=== PATIENT | male | born 1985 | race Hispanic/Latino ===

== ENCOUNTER 2018-02-23 07:15 | Inpatient (IN) | payer OTHER ==
[~2018-02-23] VITALS: Ht 177.8 cm; Wt 94.5 kg
[2018-02-23 08:07] LABS: BASOPHILS # (AUTO) 0.1 (0.0-0.1); BASOPHILS % 0.9 % (0.0-1.0); EOSINOPHILS # (AUTO) 0.1 (0.0-0.4); EOSINOPHILS % 1.1 % (0.0-6.0); HEMATOCRIT 29.4 % (38.2-49.6); HEMOGLOBIN 10.1 g/dL (14.0-18.0); MEAN CORPUSCULAR HEMOGLOBIN 29.9 pg (28-32); MEAN CORPUSCULAR HGB CONC 34.4 g/dL (31-35); MONOCYTES # (AUTO) 0.4 (0.2-0.8); MONOCYTES % 5.3 % (4.4-11.3); NEUTROPHILS # (AUTO) 5.1 (2.1-6.9); NEUTROPHILS % 76.5 % (38.7-80.0); PLATELET COUNT 288 x10e3/uL (140-360); RED BLOOD COUNT 3.38 x10e6/uL (4.3-5.7); RED CELL DISTRIBUTION WIDTH 12.8 % (11.7-14.4)
[2018-02-23] MEDS ORDERED: PANTOPRAZOLE 40 MG 10ML VIAL IV STA (08:23)
[2018-02-23 08:29] LABS: ALANINE AMINOTRANSFERASE 19 IU/L (0-55); ALBUMIN 3.7 g/dL (3.5-5.0); ALBUMIN/GLOBULIN RATIO 1.4 (0.8-2.0); ALKALINE PHOSPHATASE 47 IU/L (40-150); ANION GAP 9.9 mmol/L (8-16); BLOOD UREA NITROGEN 29 mg/dL (7-26); BUN/CREATININE RATIO 35 (6-25); CALCIUM 8.5 mg/dL (8.4-10.2); CARBON DIOXIDE 23 mmol/L (22-29); CHLORIDE 108 mmol/L (98-107); CREATINE KINASE 33 IU/L (30-200); CREATININE, SERUM 0.83 mg/dL (0.72-1.25); EST GLOMERULAR FILTRATION RATE > 60 ML/MIN (60-); GLUCOSE 124 mg/dL (74-118); POTASSIUM 3.9 mmol/L (3.5-5.1); SODIUM 137 mmol/L (136-145)
[2018-02-23] MEDS ORDERED: SODIUM CHLORIDE FLUSH 10 ML SYR INJ PRN (08:30)
[2018-02-23] MEDS ORDERED: PANTOPRAZOLE INJ 80 MG in SODIUM CHLORIDE 0.9% 100 ML IV SCH (08:30)
[2018-02-23] MEDS ORDERED: PANTOPRAZOLE INJ 40 MG in SODIUM CHLORIDE 0.9% 50ML 50 ML IV SCH (08:30)
[2018-02-23 08:40] LABS: INR 1.1; PROTHROMBIN TIME 13.4 seconds (11.9-14.5)
[2018-02-23 09:07] LABS: CHOL/HDL RATIO 3.4 (3.9-4.7)
[2018-02-23] MEDS: PANTOPRAZOL 40MG/SOD CHL 0.9% 50 ML IV SCH ×3 (09:15→21:14)
--- NOTE | 2018-02-23 09:23 | History and Physical ---
PRIMARY CARE PHYSICIAN: None CHIEF COMPLAINT: Passing out and black stool. HISTORY OF PRESENT ILLNESS: This is a 32-year-old man with a history of black stool 1 week ago, now developing black stool again yesterday described as tarry black stool with epigastric pain. The patient was having a shower. His was in the next door bathroom when the patient totally passed out. His came and got him. She said he was out for only a few seconds. The patient was brought to the hospital for further evaluation and management. He has not passed out in the past. Has not had a GI bleed in the past to his knowledge, but he has had this epigastric pain for the past 1-1/2 years, but has not sought any medical intervention. PAST MEDICAL HISTORY: None. PAST SURGICAL HISTORY: Appendectomy. ALLERGIES: PER ELECTRONIC MEDICAL RECORD. FAMILY HISTORY/SOCIAL HISTORY: Patient is . He has 5 children. Occasional alcohol. No cigarettes. 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 MEDICATIONS: Per electronic medical records. REVIEW OF SYSTEMS: Denies any dizziness or chest pain. Denies any fever, chills or sweats. Denies any nausea, vomiting, diarrhea, leg pain, back pain, headache. PHYSICAL EXAMINATION VITAL SIGNS: Reviewed. GENERAL: A tired-appearing man resting in bed. HEENT: Anicteric. Pupils respond to light. No oral lesions. CARDIOVASCULAR: Normal S1 and S2. LUNGS: Moderate breath sounds. ABDOMEN: Soft and nondistended. He has tenderness in the epigastrium. EXTREMITIES: No edema. SKIN: Dry. PSYCHIATRIC: Flat affect. NEUROLOGICAL: Alert and oriented times 3. Moves all extremities. LABS: Reviewed. MEDICATIONS: Reviewed. ASSESSMENT: This is a 32-year-old man with: 1. Syncope. 2. Melena. 3. Normocytic anemia which is mild to moderate. 4. Obesity. 5. Epigastric pain. PLAN 1. Will obtain orthostatic vitals. 2. Will obtain stool occult blood. 3. Will consult GI services. 4. Will consult physical therapy. 5. Obtain an anemia panel. 6. Will screen for diabetes and obtain a lipid panel. 7. Obtain a TSH. 8. Will use SCD for DVT prophylaxis. 9. Will use PPI. 10. Monitor closely. Job#: [id number] RI
[2018-02-23 09:28] LABS: FERRITIN 8.21 ng/mL (21.81-274.66); THYROID STIMULATING HORMONE 0.941 uIU/mL (0.350-4.940)
[2018-02-23 10:08] VITALS: BP 103/70
[2018-02-23 10:12] VITALS: BP 103/70
[2018-02-23 10:30] VITALS: BP 99/64
[2018-02-23 12:10] VITALS: BP 114/67
[2018-02-23] MEDS ORDERED: EPINEPHRINE HCL INJ 1 MG/ML AMP ONE (12:15)
[2018-02-23] MEDS ORDERED: MIDAZOLAM HCL 2 MG/2 ML VIAL ONE (14:39)
[2018-02-23] MEDS ORDERED: FENTANYL CITRATE/PF 100MCG/2 ML INJ ONE (14:39)
[2018-02-23 16:00] LABS: HEMATOCRIT 25.7 % (38.2-49.6)
[2018-02-23] MEDS: SUCRALFATE 1 GM TAB PO SCH ×2 (16:22→21:14)
[2018-02-23] MEDS ORDERED: PROPOFOL IV EMULSION 10 MG/ML 20 ML VIAL ONE (16:31)
[2018-02-23] MEDS ORDERED: LIDOCAINE HCL 2% LOCAL INJ 5 ML SDV VIAL INJ ONE (16:31)
[2018-02-23 17:07] VITALS: BP 109/56
--- NOTE | 2018-02-23 18:40 | Diagnostic Imaging Report ---
PROCEDURE:US ABDOMEN LIMITED COMPARISON:None. INDICATIONS:EPIGASTRIC PAIN, R/O CIRRHOSIS TECHNIQUE: Lu-scale and color Doppler transverse and longitudinal images of the right upper quadrant of the abdomen were obtained. FINDINGS: Limited exam secondary to overlying bowel gas. Liver: 14.5 cm in right mid-clavicular line. Slightly coarsened echogenicity. Smooth contour. No masses. Main portal vein: 0.9 cm, normal in diameter. Hepatopetal flow. Gallbladder: 0.4 cm, mildly thickened. No stones or sludge. Common Bile Duct: 0.3 cm, normal. Sonographic Beltre's sign: Negative Right kidney: 11.1 x 5.3 x 4.7 cm. Normal echogenicity. No solid masses or hydronephrosis. Pancreas: Limited evaluation secondary to overlying bowel gas. Inferior vena cava: Patent Aorta: Limited evaluation secondary to overlying bowel gas. Ascites: None in the right upper quadrant of the abdomen. CONCLUSION: Slightly coarsened liver echogenicity may reflect chronic hepatocellular disease or early cirrhosis. Mild nonspecific gallbladder wall thickening without sonographic evidence of acute cholecystitis. Dictated by: Parish Nj M.D. on 02/23/2018 at 18:45 Electronically approved by: Parish Nj M.D. on 02/23/2018 at 18:45
[2018-02-23 20:00] VITALS: BP 101/59
[2018-02-23] MEDS ORDERED: SODIUM CHLORIDE 0.9% 250ML 250 ML ONE (20:55)
[2018-02-24] VITALS (8 sets, daily range): BP systolic 100–114; BP diastolic 55–66
[2018-02-24] MEDS: PANTOPRAZOL 40MG/SOD CHL 0.9% 50 ML IV SCH ×4 (02:10→16:29)
[2018-02-24 04:56] LABS: BASOPHILS % 0.6 % (0.0-1.0); EOSINOPHILS # (AUTO) 0.1 (0.0-0.4); EOSINOPHILS % 2.1 % (0.0-6.0); HEMATOCRIT 24.5 % (38.2-49.6); HEMOGLOBIN 8.6 g/dL (14.0-18.0); LYMPHOCYTES # (AUTO) 1.4 (1.0-3.2); MEAN CORPUSCULAR HEMOGLOBIN 30.3 pg (28-32); MEAN CORPUSCULAR HGB CONC 35.1 g/dL (31-35); MEAN CORPUSCULAR VOLUME 86.3 fL (81-99); MONOCYTES # (AUTO) 0.4 (0.2-0.8); MONOCYTES % 5.9 % (4.4-11.3); NEUTROPHILS # (AUTO) 4.5 (2.1-6.9); NEUTROPHILS % 68.3 % (38.7-80.0); PLATELET COUNT 227 x10e3/uL (140-360); RED BLOOD COUNT 2.84 x10e6/uL (4.3-5.7); RED CELL DISTRIBUTION WIDTH 13.1 % (11.7-14.4)
[2018-02-24 05:09] LABS: ANION GAP 9.8 mmol/L (8-16); BLOOD UREA NITROGEN 18 mg/dL (7-26); BUN/CREATININE RATIO 23 (6-25); CALCIUM 8.2 mg/dL (8.4-10.2); CARBON DIOXIDE 23 mmol/L (22-29); CHLORIDE 106 mmol/L (98-107); EST GLOMERULAR FILTRATION RATE > 60 ML/MIN (60-); GLUCOSE 106 mg/dL (74-118); POTASSIUM 3.8 mmol/L (3.5-5.1); SODIUM 135 mmol/L (136-145)
[2018-02-24] MEDS: SUCRALFATE 1 GM TAB PO SCH ×4 (08:28→20:36)
[2018-02-24 12:12] LABS: HEMATOCRIT 25.1 % (38.2-49.6); HEMOGLOBIN 8.6 g/dL (14.0-18.0)
[2018-02-24 18:37] LABS: HEMATOCRIT 23.9 % (38.2-49.6); HEMOGLOBIN 8.2 g/dL (14.0-18.0)
[2018-02-25] MEDS: PANTOPRAZOL 40MG/SOD CHL 0.9% 50 ML IV SCH ×5 (02:20→20:56)
[2018-02-25 06:07] LABS: HEMATOCRIT 23.2 % (38.2-49.6)
[2018-02-25] MEDS: SUCRALFATE 1 GM TAB PO SCH ×4 (07:55→22:07)
[2018-02-25 08:05] VITALS: BP 107/52
[2018-02-25 08:24] VITALS: BP 107/52
--- NOTE | 2018-02-25 10:27 | Progress Note ---
DATE: February 24, 2018 TIME: 8:00 a.m. OVERNIGHT: Underwent EGD with findings of duodenal ulcer, hiatal hernia, duodenitis, gastritis, and Schatzki ring. REVIEW OF SYSTEMS: Denies any dizziness, chest pain. PHYSICAL EXAMINATION: VITAL SIGNS: Reviewed. GENERAL APPEARANCE: Tired-appearing man resting in bed. HEENT: Anicteric. CARDIOVASCULAR: Normal S1 and S2. LUNGS: Moderate breath sounds. ABDOMEN: Soft, nontender. EXTREMITIES: No edema. SKIN: Dry. PSYCHIATRIC: Normal affect. LABS: Reviewed. MEDICATIONS: Reviewed. ASSESSMENT: A 32-year-old man. 1. Syncope. 2. Melena. 3. Normocytic anemia. 4. Obesity. 5. Epigastric pain. 6. Iron deficiency anemia. 7. Duodenal ulcer. 8. Hiatal hernia. 9. Duodenitis. 10. Gastritis. 11. Schatzki ring. PLAN: 1. Continue PPI. 2. Continue bowel regimen. 3. Follow up hemoglobin count. 4. Continue sucralfate. 5. Follow up GI recommendations. 6. Discharge planning. Job#: [id number]
[2018-02-25 11:59] VITALS: BP 114/58
[2018-02-25 12:13] LABS: HEMATOCRIT 23.9 % (38.2-49.6); HEMOGLOBIN 8.1 g/dL (14.0-18.0)
--- NOTE | 2018-02-25 15:54 | Progress Note ---
DATE: February 25, 2018 TIME: 11:00 a.m. OVERNIGHT: No acute events. REVIEW OF SYSTEMS: Denies dizziness, shortness of breath, chest pain. No nausea, vomiting or diarrhea at this time. Intermittent tenderness to abdomen reported. PHYSICAL EXAMINATION VITAL SIGNS: T 97.9, pulse 66, respiratory rate 18, BP 114/58. SpO2 100% on RA. GENERAL APPEARANCE: Tired-appearing man resting quietly in bed. HEENT: Normocephalic, without sinus tenderness. CV: S1 and S2 auscultated without extra cardiac sounds appreciated. LUNGS/RESPIRATORY: Bilateral breath sounds are clear to auscultation in all herron at this time. ABDOMEN: Soft, nondistended, only slightly tender to deep palpation. EXTREMITIES: No edema. SKIN: Dry. PSYCHIATRIC: Normal affect. NEURO: Alert and oriented x3. LABS: H and H this a.m. 8.1 and 23.9. Prior values reviewed. MEDICATIONS 1. Carafate 1 gram a.c. and at bedtime. 2. Protonix drip IV. ASSESSMENT: This is a 32-year-old man with: 1. Syncope. 2. Melena. Stool collected, report pending. 3. Normocytic anemia. Continue to monitor. Stable. Continues on PPI. 4. Obesity. Outpatient calorie restriction counseling. 5. Epigastric pain, resolved. 6. Iron deficiency anemia. Continue PPI, Carafate and GI recommendations. 7. Duodenal ulcer. Continue GI rest and PPI. 8. Hiatal hernia. 9. Duodenitis, gastritis and Schatzki ring. Continue PPI and defer to GI. 10. Discharge planning. Pending PPI completion and GI clearance, anticipate discharge. DICTATED BY: Fernanda Jimenez NP Job#: [id number]
[2018-02-25 16:46] VITALS: BP 118/56
[2018-02-25 18:08] LABS: HEMATOCRIT 23.2 % (38.2-49.6); HEMOGLOBIN 8.2 g/dL (14.0-18.0)
[2018-02-25 19:58] VITALS: BP 113/60
[2018-02-25 20:05] VITALS: BP 113/60
[2018-02-26 00:29] VITALS: BP 122/58
[2018-02-26] MEDS: PANTOPRAZOL 40MG/SOD CHL 0.9% 50 ML IV SCH ×2 (02:08→08:06)
[2018-02-26 05:04] LABS: HEMATOCRIT 23.7 % (38.2-49.6)
[2018-02-26 06:00] VITALS: BP 117/56
[2018-02-26 08:13] VITALS: BP 101/52
[2018-02-26] MEDS: SUCRALFATE 1 GM TAB PO SCH (08:30)
[2018-02-26 08:45] VITALS: BP 128/58
[2018-02-26 11:43] LABS: HEMATOCRIT 23.9 % (38.2-49.6); HEMOGLOBIN 8.4 g/dL (14.0-18.0)
[2018-02-26] MEDS ORDERED: CARAFATE1 GM PO (12:02)
[2018-02-26] MEDS ORDERED: PROTONIX40 MG PO (12:02)
[2018-02-26 12:17] VITALS: BP 106/58
--- NOTE | 2018-02-26 21:31 | Discharge Summary ---
PRINCIPAL DIAGNOSES 1. Syncope. 2. Melena. 3. Normocytic anemia. 4. Obesity. 5. Epigastric pain. 6. Iron deficiency anemia. 7. Duodenal ulcer. 8. Hiatal hernia. 9. Duodenitis. 10. Gastritis. 11. Schatzki's ring. SECONDARY DIAGNOSIS: No prior medical history other than remote surgical ____ of appendectomy. CHIEF COMPLAINT: Passing out and black stool. HISTORY OF PRESENT ILLNESS: This 32-year-old man with a history of black stools x1 week began to develop black stool again, which he described as tarry with epigastric pain. The patient was having a shower that last he recalled. His was in the next door bathroom when the patient passed out. She heard this and came and got him. The syncopal episode was only for a few seconds per the spouse. The patient was brought to the hospital for further evaluation and management. He has no prior history of syncope or history of GI bleed. The patient did admit to epigastric pain for the past 1 to 1 1/2 years without seeking medical intervention. The patient was admitted for evaluation and treatment which included orthostatic vitals, obtaining stool occult blood. GI service consult, physical therapy, monitoring of TSH, screening for disease and lipids and physical therapy. The following day the patient, under the care of GI services, underwent EGD and colonoscopy at which time he was diagnosed with a duodenal ulcer, duodenitis, gastritis and a Schatzki's ring. Per GI recommendations, the patient was to continue on Protonix drip for 72 hours. The patient maintained stable hemoglobin and hematocrit while consuming Carafate ___ at bedtime with a Protonix drip. He had an uneventful hospital course. DISCHARGE MEDICATIONS: The patient was discharged with prescription for Protonix 40 mg suspension packet 1 per day and Carafate 1 gram tablet p.o. a.c. and nightly for 10 days. FOLLOWUP INSTRUCTIONS: The patient is instructed to follow up with gastroenterology, Dr. Aleena Alfaro, within one week and to follow up with internal medicine, Dr. Xavi Anthony, within 1-2 weeks. DISCHARGE DIET: Cardiac. He is to consume a soft diet as tolerated. CONDITION ON DISCHARGE: Stable and improved. DICTATED BY: Fernanda Jimenez NP XAVI ANTHONY MD Job#: [id number]
--- NOTE | 2018-02-27 10:02 | Progress Note ---
DATE: TIME: 1:17 p.m. OVERNIGHT: The patient had an EGD performed. REVIEW OF SYSTEMS: Denies any dizziness or chest pain. PHYSICAL EXAMINATION VITAL SIGNS: Reviewed. GENERAL: A tired-appearing man resting in bed. HEENT: Anicteric. CARDIOVASCULAR: Normal S1 and S2. LUNGS: Moderate breath sounds. ABDOMEN: Soft, nontender and nondistended. EXTREMITIES: No edema or calf tenderness. NEUROLOGICAL: Alert and oriented times 3. Moving all extremities. LABS: Reviewed. MEDICATIONS: Reviewed. ASSESSMENT: A 32-year-old man with: 1. Syncope. 2. Melena. 3. Normocytic anemia, mild to moderate. 4. Obesity. 5. Epigastric pain. 6. Iron deficiency anemia. 7. Duodenal ulcer. 8. Hiatal hernia. 9. Duodenitis. 10. Gastritis. 11. Schatzki ring. PLAN 1. Continue medication regimen. 2. Follow up GI recommendations. 3. Continue monitoring closely. 4. Couple of blackouts. 5. Continue GI treatment. 6. The patient remains on PPI and sucralfate. Job#: [id number]
== END 2018-02-26 13:39 | disposition home or self-care (01) | DRG 379 ==
LOC: ER 07:15 → ERHOLD 08:34 → IMCU 09:50 → OBSVTOIN 02-24 13:36 → MED/SURG 02-24 22:00
PROVIDERS: ADMIT Internal Medicine; ATTEND Internal Medicine
PROC: 0DB78ZX Excision of Stomach, Pylorus, Via Natural or Artificial Opening Endoscopic, Diagnostic (ICD-10-PCS; principal; 2018-02-24)
PROC: 3E0G8GC Introduction of Other Therapeutic Substance into Upper GI, Via Natural or Artificial Opening Endoscopic (ICD-10-PCS; 2018-02-24)
PROC: 0DJ08ZZ Inspection of Upper Intestinal Tract, Via Natural or Artificial Opening Endoscopic (ICD-10-PCS; 2018-02-24)
DX: K26.0 Acute duodenal ulcer with hemorrhage (principal); D50.0 Iron deficiency anemia secondary to blood loss (chronic); K44.9 Diaphragmatic hernia without obstruction or gangrene; K22.2 Esophageal obstruction; K29.70 Gastritis, unspecified, without bleeding
CPT/HCPCS: 36415; 43235; 43239; 76705; 80048; 80053; 80061; 82550; 82553; 82607; 82728; 83036; 83540; 84443; 84466; 84484; 85014; 85018; 85025; 85610; 85730; 88305; 88312; 93005; 96374; 99284; G0378; J0171; J2001; J2250; J7050

== ENCOUNTER 2020-01-01 18:49 | Inpatient (IN) | payer OTHER ==
[~2020-01-01] VITALS: Ht 177.8 cm; Wt 95.7 kg
[~2020-01-01 18:49] MED LIST: CARAFATE1 GM PO; PROTONIX40 MG PO
--- OUTSIDE RECORDS SUMMARY | 2020-01-01 18:51 | XMS REPORT | Continuity of Care Document ---
Author Author [facility] t Organization [facility] Address [address] [place] [address] Phone Unavailable Care Team Providers Care Information Engineer Name Role Phone NO, PCP PCP Unavailable XAVI ANTHONY Attphys Unavailable XAVI ANTHONY Admphys Unavailable Payers Payer Name Policy Type Policy Number Effective Date Expiration Date Barbara recinos Miscellaneous Ppo [id number] 2017 00:00:00 [facility] Problems Condition Name Condition Details Condition Category Status Onset Date Resolution Date Last Treatment Date Treating Clinician Comments Source Gastrointestinal hemorrhage GI (gastrointestinal bleed) Problem Active [facility] Allergies, Adverse Reactions, Alerts This patient has no known allergies or adverse reactions. Medications Ordered Medication Name Filled Medication Name Start Date Stop Da te Current Medication? Ordering Clinician Indication Dosage Frequency Signature (SIG) Comments Components Source Pantoprazole Sodium (Protonix) 40 Mg Suspdr.pkt Pantop razole Sodium (Protonix) 40 Mg Suspdr.pkt 2018-02-26 00:00:00 2018-03-08 00:00:00 No Fernanda stubbs Primary Care Sales Representative 40 Daily [facility] Sucralfate (Carafate) 1 Gm Tablet Sucralfate (Carafate) 1 Gm Tablet 2018-02-26 00:00:00 2018-03-08 00:00:00 No Fernanda Jimenez Primary Care Sales Representative 1 Before Meals And At Bedtime [facility] Procedures Procedure Date / Time Performed Performing Clinician Soursintia e EGD with biopsy 2018-02-23 00:00:00 FUAD ANGELA [facility] EGD (esophagogastroduodenoscopy) 2018-02-23 00:00:00 FUAD ANGELA [facility] US abdomen limited 2018-02-23 00:00:00 SOPHIA DIAL PA-C, [facility] I [facility] Encounters Start Date/Time End Date/Time [facility] ID Source 2018-02-24 13:36:00 2018-02-26 13:39:00 Discharged Inpatient 1 XAVI ANTHONY [facility] [id number] [facility] Results Test Description Test Time Test Comments Results Result Comments Source Hemoglobin 2018-02-26 11:45:00 Test Item Hemoglobin (test code = 11716-6) 8.4 14.0-18.0 L [facility]villeHematocrit2018-08-06 11:45:00* Test Item Value Reference Range Interpretation Comments Hematocrit (test code = 4544-3) 23.9 38.2-49.6 L [facility] Templeodium Cynus4997-97-03 05:09:00* Test Item Value Reference Range Interpretation Comments Sodium Level (test code = 2951-2) 135 136-145 L [facility]villePotassium Svvib7131-22-09 05:09:00* Test Item Value Reference Range Interpretation Comments Potassium Level (test code = 2823-3) 3.8 3.5-5.1 [facility]villeChloride Ujctn7533-79-04 05:09:00* Test Item Value Reference Range Interpretation Comments Chloride Level (test code = 2075-0) 106 98-107 [facility] GreenvilleCarbon Dioxide Ufgdp4110-70-61 05:09:00* Test Item Value Reference Range Interpretation Comments Carbon Dioxide Level (test code = 2028-9) 23 22-29 [facility] GreenvilleAnion Eqz8209-47-70 05:09:00* Test Item Value Reference Range Interpretation Comments Anion Gap (test code = 73097-1) 9.8 8-16 [facility] GreenvilleBlood Urea Ketenizg6652-11-15 05:09:00* Test Item Value Reference Range Interpretation Comments Blood Urea Nitrogen (test code = 3094-0) 18 7-26 [facility] GreenvilleCreatinine2018-08-04 05:09:00* Test Item Value Reference Range Interpretation Comments Creatinine (test code = 2160-0) 0.80 0.72-1.25 [facility]villeBUN/Creatinine Orbuc4814-37-58 05:09:00* Test Item Value Reference Range Interpretation Comments BUN/Creatinine Ratio (test code = 3097-3) 23 6-25 [facility] GreenvilleEstimat Glomerular Filtration Rate 2018-02-24 05:09:00* Test Item Value Reference Range Interpretation Comments Estimat Glomerular Filtration Rate (test code = 21669-9) 60- >60 Ranges were taken from the National Kidney Disease Education Program and the Critical access hospital Kidney Foundation literature.Reference ranges:60 or greater: Nithfo57-90 ( for 3 consecutive months): Chronic kidney disease 15 or less: Kidney failureHunt Regional Medical Center at GreenvilleGlucose Qyhtg3973-89-06 05:09:00* Test Item Value Reference Range Interpretation Comments Glucose Level (test code = ERR9794) 106 74-118 [facility] GreenvilleCalcium Drlby1386-68-68 05:09:00* Test Item Value Reference Range Interpretation Comments Calcium Level (test code = 98765-2) 8.2 8.4-10.2 L [facility] GreenvilleActivated Partial Thromboplast Time 2018-02-24 05:06:00* Test Item Value Reference Range Interpretation Comments Activated Partial Thromboplast Time (test code = 71335-7) 26.7 23.8-35.5 [facility] GreenvilleWhite Blood Qnoxx5118-22-33 05:01:00* Test Item Value Reference Range Interpretation Comments White Blood Count (test code = 6690-2) 6.56 4.8-10.8 [facility] GreenvilleRed Blood Dythe1372-04-30 05:01:00* Test Item Value Reference Range Interpretation Comments Red Blood Count (test code = 789-8) 2.84 4.3-5.7 L [facility] GreenvilleMean Corpuscular Fndkuw9099-34-07 05:01:00* Test Item Value Reference Range Interpretation Comments Mean Corpuscular Volume (test code = 787-2) 86.3 81-99 [facility] GreenvilleMean Corpuscular Oqhpjoelpn7888-87-74 05:01:00* Test Item Value Reference Range Interpretation Comments Mean Corpuscular Hemoglobin (test code = 785-6) 30.3 28-32 [facility] GreenvilleMean Corpuscular Hemoglobin Concent 2018-02-24 05:01:00* Test Item Value Reference Range Interpretation Comments Mean Corpuscular Hemoglobin Concent (test code = 786-4) 35.1 31-35 H [facility] GreenvilleRed Cell Distribution Qqtif5383-29-55 05:01:00* Test Item Value Reference Range Interpretation Comments Red Cell Distribution Width (test code = 08083-2) 13.1 11.7 -14.4 [facility] GreenvillePlatelet Eapjz4691-74-45 05:01:00* Test Item Value Reference Range Interpretation Comments Platelet Count (test code = 777-3) 227 140-360 [facility] GreenvilleNeutrophils (%) (Auto)2018-02-24 05:01:00 * Test Item Value Reference Range Interpretation Comments Neutrophils (%) (Auto) (test code = 03787-1) 68.3 38.7-80.0 [facility] GreenvilleLymphocytes (%) (Auto)2018-02-24 05:01:00 * Test Item Value Reference Range Interpretation Comments Lymphocytes (%) (Auto) (test code = 736-9) 22.0 18.0-39.1 [facility]villeMonocytes (%) (Auto)2018-02-24 05:01:00* Test Item Value Reference Range Interpretation Comments Monocytes (%) (Auto) (test code = 5905-5) 5.9 4.4-11.3 [facility]villeEosinophils (%) (Auto)2018-02-24 05:01:00 * Test Item Value Reference Range Interpretation Comments Eosinophils (%) (Auto) (test code = 713-8) 2.1 0.0-6.0 [facility]villeBasophils (%) (Auto)2018-02-24 05:01:00* Test Item Value Reference Range Interpretation Comments Basophils (%) (Auto) (test code = 706-2) 0.6 0.0-1.0 [facility] GreenvilleIM GRANULOCYTES %2018-02-24 05:01:00* Test Item Value Reference Range Interpretation Comments IM GRANULOCYTES % (test code = IM GRANULOCYTES %) 1.1 0.0- 1.0 H [facility]villeNeutrophils # (Auto)2018-02-24 05:01:00* Test Item Value Reference Range Interpretation Comments Neutrophils # (Auto) (test code = 751-8) 4.5 2.1-6.9 [facility] GreenvilleLymphocytes # (Auto)2018-02-24 05:01:00* Test Item Value Reference Range Interpretation Comments Lymphocytes # (Auto) (test code = 68774-3) 1.4 1.0-3.2 [facility]villeMonocytes # (Auto)2018-02-24 05:01:00* Test Item Value Reference Range Interpretation Comments Monocytes # (Auto) (test code = 742-7) 0.4 0.2-0.8 [facility]villeEosinophils # (Auto)2018-02-24 05:01:00* Test Item Value Reference Range Interpretation Comments Eosinophils # (Auto) (test code = 711-2) 0.1 0.0-0.4 [facility]villeBasophils # (Auto)2018-02-24 05:01:00* Test Item Value Reference Range Interpretation Comments Basophils # (Auto) (test code = 704-7) 0.0 0.0-0.1 [facility] GreenvilleAbsolute Immature Granulocyte (auto 2018-02-24 05:01:00* Test Item Value Reference Range Interpretation Comments Absolute Immature Granulocyte (auto (nellie t code = Absolute Immature Granulocyte (auto) 0.07 0-0.1 [facility] GreenvilleUS ABDOMEN XYHJYTM1650-41-58 18:45:00 [place] [address] Patient Name: AN FRANK MR #: [id number] : 1985 Age/Sex: 32/M Req #: [id number] Adm Physicia n: XAVI ANTHONY MD Ordered by: SOPHIA DIAL PA-C Report #: [id number] L ocation: [facility] Room/Bed: [place] [address] Procedure: US/US ABDOMEN LIMITED Exam Date: 02/23/18 Exam Ti me: 1453 REPORT STATUS: Signed PROCEDURE: US ABDOMEN LIMITED COMPAR MYRIAM: None. INDICATIONS: EPIGASTRIC PAIN, R/O CIRRHOSIS TECHNIQUE: Lu- scale and color Doppler transverse and longitudinal images of the right upper quadrant of the abdomen were obtained. FINDINGS: Limited exam second bright to overlying bowel gas. Liver: 14.5 cm in right mid-clavicular line. S lightly coarsened echogenicity. Smooth contour. No masses. Main portal vein : 0.9 cm, normal in diameter. Hepatopetal flow. Gallbladder: 0.4 cm, mild ly thickened. No stones or sludge. Common Bile Duct: 0.3 cm, normal. Sono graphic Beltre's sign: Negative Right kidney: 11.1 x 5.3 x 4.7 cm. Normal echogenicity. No solid masses or hydronephrosis. Pancreas: Limited cassie luation secondary to overlying bowel gas. Inferior vena cava: Patent Ao rta: Limited evaluation secondary to overlying bowel gas. Ascites: None in th e right upper quadrant of the abdomen. CONCLUSION: Slightly coarsened liver echogenicity may reflect chronic hepatocellular disease or early cirrh osis. Mild nonspecific gallbladder wall thickening without sonographic evidence of acute cholecystitis. Dictated by: Parish Solano M.D. o n 02/23/2018 at 18:45 Electronically approved by: Parish Solano M.D. on 02/23/2018 at 18:45 Dictated By: PARISH SOLANO MD Electronical ly Signed By: PARISH SOLANO MD on 02/23/181844 Transcribed By: APPLE on 1844 COPY TO: SOPHIA DIAL PA-C Vitamin B12 Level 2018-02-23 10:00:00* Test Item Value Reference Range Interpretation Comments Vitamin B12 Level (test code = 66294-8) 361 213-816 [facility] GreenvilleFerritin2018-08-03 09:29:00* Test Item Value Reference Range Interpretation Comments Ferritin (test code = 2276-4) 8.21 21.81-274.66 L [facility] GreenvilleThyroid Stimulating Hormone (TSH) 2018-02-23 09:29:00* Test Item Value Reference Range Interpretation Comments Thyroid Stimulating Hormone (TSH) (test code = 13827-6) 0.941 0.350-4.940 [facility] GreenvilleIron Ipunw0071-69-10 09:07:00* Test Item Value Reference Range Interpretation Comments Iron Level (test code = 2498-4) 28 65-175 L [facility] GreenvilleTotal Iron Binding Mgjtnokb3423-86-41 09:07:00* Test Item Value Reference Range Interpretation Comments Total Iron Binding Capacity (test code = 2500-7) 441 261-4 78 [facility] GreenvillePercent Iron Nvwaknxykw5623-88-07 09:07:00* Test Item Value Reference Range Interpretation Comments Percent Iron Saturation (test code = 2502-3) 6 15-50 L [facility] GreenvilleTransferrin2018-08-03 09:07:00* Test Item Value Reference Range Interpretation Comments Transferrin (test code = 3034-6) 315 174-364 [facility] GreenvilleTriglycerides Awupe7148-30-76 09:07:00* Test Item Value Reference Range Interpretation Comments Triglycerides Level (test code = 2571-8) 83 0-149 [facility] GreenvilleCholesterol Eldpa1722-27-86 09:07:00* Test Item Value Reference Range Interpretation Comments Cholesterol Level (test code = 2093-3) 99 0-199 Less than 200 mg/dL Low Vauv570 - 239 mg/dL Borderline Yuot441 m g/dl and greater High Risk [facility] GreenvilleLDL Gzqatdxykcg0261-76-35 09:07:00* Test Item Value Reference Range Interpretation Comments LDL Cholesterol (test code = 2089-1) 53 60-130 L [facility] GreenvilleHDL Qxjluudldln4395-88-85 09:07:00* Test Item Value Reference Range Interpretation Comments HDL Cholesterol (test code = 2085-9) 29 40-60 L [facility] GreenvilleCholesterol/HDL Fjahw2614-39-84 09:07:00 * Test Item Value Reference Range Interpretation Comments Cholesterol/HDL Ratio (test code = 9830-1) 3.4 3.9-4.7 L [facility] GreenvilleHemoglobin A1c Vhzkxnl5405-37-56 09:06:00 * Test Item Value Reference Range Interpretation Comments Hemoglobin A1c Percent (test code = Hemoglobin A1c Percent) 4.9 4.0-7.0 [facility] GreenvilleProthrombin Tqqp7667-57-76 08:41:00* Test Item Value Reference Range Interpretation Comments Prothrombin Time (test code = 5902-2) 13.4 11.9-14.5 [facility] GreenvilleProthromb Time International Ratio 2018-02-23 08:41:00* Test Item Value Reference Range Interpretation Comments Prothromb Time International Ratio (test code = 6301-6) 1.10 Oral Anticoagulant Therapy INR Values:1. Low Intensity Therapy 1.5 - 2.02 . Moderate Intensity Therapy 2.0 - 3.03. High Intensity Therapy(1) 2.5 - 3. 54. High Intensity Therapy(2) 3.0 - 4.05. Panic Value INR > 5.0 [facility] GreenvilleCreatine Kinase DH4732-58-68 08:37:00* Test Item Value Reference Range Interpretation Comments Creatine Kinase MB (test code = 41497-8) 0.40 0-5.0 [facility] GreenvilleTroponin P8373-73-28 08:37:00* Test Item Value Reference Range Interpretation Comments Troponin I (test code = WNY7703) 0.017 0-0.300 [facility] GreenvilleTotal Pcbzidxmu4849-44-92 08:29:00* Test Item Value Reference Range Interpretation Comments Total Bilirubin (test code = 1975-2) 0.4 0.2-1.2 [facility] GreenvilleAspartate Amino Transf (AST/SGOT) 2018-02-23 08:29:00* Test Item Value Reference Range Interpretation Comments Aspartate Amino Transf (AST/SGOT) (test code = Aspartate Amino Transf (AST/SGOT)) 14 5-34 [facility] GreenvilleAlanine Aminotransferase (ALT/SGPT) 2018-02-23 08:29:00* Test Item Value Reference Range Interpretation Comments Alanine Aminotransferase (ALT/SGPT) (test code = 1742-6) 19 0-55 [facility] GreenvilleTotal Lnptdhk1131-87-20 08:29:00* Test Item Value Reference Range Interpretation Comments Total Protein (test code = 2885-2) 6.3 6.5-8.1 L [facility] GreenvilleAlbumin2018-08-03 08:29:00* Test Item Value Reference Range Interpretation Comments Albumin (test code = 1751-7) 3.7 3.5-5.0 [facility] GreenvilleGlobulin2018-08-03 08:29:00* Test Item Value Reference Range Interpretation Comments Globulin (test code = 40569-9) 2.6 2.3-3.5 [facility] GreenvilleAlbumin/Globulin Vozzq4191-08-62 08:29:00 * Test Item Value Reference Range Interpretation Comments Albumin/Globulin Ratio (test code = 1759-0) 1.4 0.8-2.0 [facility] GreenvilleAlkaline Dxkbvreqpjr6569-88-39 08:29:00* Test Item Value Reference Range Interpretation Comments Alkaline Phosphatase (test code = 6768-6) 47 40-150 [facility] GreenvilleCreatine Dgsifn4614-18-36 08:29:00* Test Item Value Reference Range Interpretation Comments Creatine Kinase (test code = 2157-6) 33 30-200 [facility]
[2020-01-01] MEDS ORDERED: PIPER-TAZ 3.375 GM 50 ML IV STA (19:03)
[2020-01-01] MEDS ORDERED: ACETAMINOPHEN 325 MG TAB PO ONE (19:15)
--- NOTE | 2020-01-01 19:20 | Emergency Department Note ---
History of Present Illnes History of Present Illness Chief Complaint: COVID PUI History of Present Illness This is a 34 year old male presents to the ED for 7 days of cough and dyspnea. Known exposure to COVID-19. Historian: Patient Video Production Assistant Required: No Onset (how long ago): day(s) (7) Radiation: Reports non-radiation Severity: moderate Duration (how long): day(s) (7) Timing of current episode: constant Progression: worsening Context: Reports recent illness Relieving factors: none Exacerbating factors: none Associated symptoms: Reports fever/chills, Reports shortness of breath Treatments prior to arrival: none Past Medical/Family History Physician Review I have reviewed the patient's past medical and family history. Any updates have been documented here. Past Medical History Recent Fever: Yes Clinical Suspicion of Infectio: Yes New/Unexplained Change in Ment: No Past Medical History: None Past Surgical History: None Social History Smoking Cessation: Never Smoker Alcohol Use: Occasional Any Illegal Drug Use: No Other Last Tetanus: unk Review of Systems Review of Systems Constitutional: Reports fever EENTM: Reports no symptoms Cardiovascular: Reports no symptoms Respiratory: Reports cough Gastrointestinal: Reports no symptoms Genitourinary: Reports no symptoms Musculoskeletal: Reports no symptoms Integumentary: Reports no symptoms Neurological: Reports no symptoms Psychological: Reports no symptoms Endocrine: Reports no symptoms Hematological/Lymphatic: Reports no symptoms Review of other systems All other systems reviewed and negative. Physical Exam Related Data Allergies: Coded Allergies: No Known Allergies (Unverified , 02/23/18) Triage Vital Signs Vital Signs Date Time Temp Pulse Resp B/P (MAP) Pulse Ox O2 Delivery O2 Flow Rate FiO2 01/01/20 18:55 102.5 92 33 133/84 100 Vital signs reviewed: Yes Physical Exam CONSTITUTIONAL Constitutional: Reports well-developed, Reports well-nourished, Reports ill appearing HENT HENT: Reports normocephalic, Reports atraumatic, Reports oropharynx clear/nga st, Reports nose normal HENT L/R: Reports left ext ear normal, Reports right ext ear normal EYES Eyes: Reports PERRL, Reports conjunctivae normal NECK Neck: Reports ROM normal PULMONARY Pulmonary: Reports breath sounds normal, Reports other (tachypneic, decreased BS) CARDIOVASCULAR Cardiovascular: Reports heart sounds normal, Reports tachycardia GASTROINTESTINAL Abdominal: Reports soft, Reports nontender, Reports bowel sounds normal GENITOURINARY Genitourinary: Reports exam deferred SKIN Skin: Reports warm, Reports dry MUSCULOSKELETAL Musculoskeletal: Reports ROM normal NEUROLOGICAL Neurological: Reports alert, Reports oriented x 3, Reports no gross motor or sensory deficits PSYCHOLOGICAL Psychological: Reports mood/affect normal, Reports judgement normal Results Laboratory Lab results reviewed: Yes Laboratory comments Lactic acid 2.7 UA : mod bacteria Imaging Imaging results reviewed: Yes Impressions [place] [address] Patient Name: AN FRANK MR #: [id number] : 1985 Age/Sex: 34/M Req #: [id number] Adm Physician: Ordered by: ROQUE WALSH DO Report #: [id number] Location: ER Room/Bed: Procedure: [id number] DX/CHEST SINGLE (PORTABLE) Exam Date: 01/01/20 Exam Time: 1929 REPORT STATUS: Signed EXAM: CHEST SINGLE (PORTABLE) DATE: 01/01/2020 7:37 PM INDICATION: Shortness of breath, cough ^Y ^ERMD ORDER ^[id number] ^1929 ^Y COMPARISON: None FINDINGS: Lines and tubes: None The cardiac silhouette is normal allowing for portable technique and very low lung volumes. There is patchy airspace opacity at both lung bases. No pleural effusion or pneumothorax. Upper abdomen unremarkable. No acute bony abnormality. IMPRESSION: There are patchy airspace opacities at the lung bases. While this may reflect atelectasis accentuated by low lung volumes, this may represent multifocal pneumonia in the proper clinical setting. Signed by: Dr. Bryan Spaulding M.D. on 01/01/2020 8:13 PM Dictated By: BRYAN SPAULDING MD 12 Transcribed By: MARA on 01/01/202012 COPY TO: ROQUE WALSH DO~ Procedures 12 Lead ECG Interpretation ECG Interpretation : ECG: ECG 1 Video Production Assistant: Interpreted by ED physician Date: Jan 01, 2020 Time: 19:23 Prior ECG tracings: reviewed Rhythm: sinus tachycardia Rate: tachycardia BPM: 105 QRS axis: normal ST segments normal: Yes T waves normal: Yes Clinical Impression: non-specific ECG Critical Care Time Total Critical Care Time (min): 34 Critcal care necessary due to: sepsis Assessment & Plan Medical Decision Making MDM Patient presented during the COVID-19 virus pandemic and has a clinical picture consistent with a COVID-19 source for sepsis. Thus, patient was treated for suspected viral sepsis rather than bacterial sepsis. Given the potential for ARDS and present suggestions of early data from COVID treatment in other areas, fluids were given sparingly and the SEP-1 guidelines were deviated from. For consideration of other sources, blood and urine cultures, lactic acid and antibiotics were ordered. Will continue to monitor blood pressure and adjust fluid resuscitation accordingly. Patient with positive COVID-19 from outside testing center. Increasingly dys pneic. Lactic aid elevated. Plan to admit to the COVID-19 unit of the hospital. Assessment & Plan Final Impression: (1) COVID-19 (2) Sepsis Depart Disposition: ADMITTED Last Vital Signs Date Time Temp Pulse Resp B/P (MAP) Pulse Ox O2 Delivery O2 Flow Rate FiO2 01/01/20 18:55 102.5 92 33 133/84 100 Home Meds Discontinued Scripts Pantoprazole Sodium (PROTONIX) 40 Mg Suspdr.pkt, 40 MG PO DAILY for 10 Days, #10 PACKET Prov:[facility] TUTOR 02/26/18 Sucralfate (CARAFATE) 1 Gm Tablet, 1 GM PO ACHS for 10 Days, #40 Prov:[facility] T[facility] 02/26/18 Medications in the ED Piperacillin Sod/ Tazobactam Sod 50 ml @ 50 mls/hr ONCE STAT IV ; Start 01/01/20 at 19:03; Stop 01/01/20 at 20:02 Acetaminophen 650 mg ONCE ONCE PO ; Start 01/01/20 at 19:15; Stop 01/01/20 at 19:16; Status DC ROQUE WALSH DO Jan 01, 2020 19:20
[2020-01-01 19:32] LABS: BASOPHILS % 0.2 % (0.0-1.0); EOSINOPHILS % 0.1 % (0.0-6.0); HEMATOCRIT 50.2 % (38.2-49.6); HEMOGLOBIN 17.3 g/dL (14.0-18.0); LYMPHOCYTES # (AUTO) 0.7 (1.0-3.2); LYMPHOCYTES % 7.6 % (18.0-39.1); MEAN CORPUSCULAR HEMOGLOBIN 29.2 pg (28-32); MEAN CORPUSCULAR HGB CONC 34.5 g/dL (31-35); MEAN CORPUSCULAR VOLUME 84.8 fL (81-99); MONOCYTES # (AUTO) 0.6 (0.2-0.8); MONOCYTES % 5.8 % (4.4-11.3); NEUTROPHILS # (AUTO) 8.2 (2.1-6.9); NEUTROPHILS % 85.8 % (38.7-80.0); PLATELET COUNT 254 x10e3/uL (140-360); RED BLOOD COUNT 5.92 x10e6/uL (4.3-5.7); RED CELL DISTRIBUTION WIDTH 11.9 % (11.7-14.4)
[2020-01-01] MEDS ORDERED: SODIUM CHLORIDE 0.9% 1000ML 1,000 ML IV STA (19:42)
--- NOTE | 2020-01-01 19:42 | NUR ---
ER MD AND PRIMARY RN NOTIFIED AND AWARE OF CRITIAL LAB VALUE, LACTIC ACID 2.7.
[2020-01-01 19:44] LABS: ALANINE AMINOTRANSFERASE 26 IU/L (0-55); ALBUMIN 3.8 g/dL (3.5-5.0); ALBUMIN/GLOBULIN RATIO 0.9 (0.8-2.0); ALKALINE PHOSPHATASE 62 IU/L (40-150); ANION GAP 16.9 mmol/L (8-16); BLOOD UREA NITROGEN 14 mg/dL (7-26); BUN/CREATININE RATIO 13 (6-25); CALCIUM 9.2 mg/dL (8.4-10.2); CARBON DIOXIDE 23 mmol/L (22-29); CHLORIDE 103 mmol/L (98-107); CREATINE KINASE 35 IU/L (30-200); CREATININE, SERUM 1.05 mg/dL (0.72-1.25); EST GLOMERULAR FILTRATION RATE > 60 ML/MIN (60-); GLUCOSE 130 mg/dL (74-118); POTASSIUM 3.9 mmol/L (3.5-5.1); SODIUM 139 mmol/L (136-145)
[2020-01-01] MEDS ORDERED: ALBUTEROL SULFATE HFA 8GM INHALATION AEROSOL INH STA (20:15)
[2020-01-01 20:16] LABS: CLARITY,URINE SL CLOUDY (CLEAR); COLOR,URINE YELLOW (YELLOW); URINE UROBILINOGEN 4 mg/dL (0.2 - 1)
[2020-01-01 20:17] LABS: BILIRUBIN,URINE NEGATIVE (NEGATIVE); KETONES,URINE NEGATIVE (NEGATIVE); LEUKOCYTE ESTERASE ,URINE NEGATIVE (NEGATIVE); NITRITE,URINE NEGATIVE (NEGATIVE); PROTEIN,URINE DIPSTICK 1+ (NEGATIVE)
--- NOTE | 2020-01-01 20:17 | Diagnostic Imaging Report ---
EXAM: CHEST SINGLE (PORTABLE) DATE: 01/01/2020 7:37 PM INDICATION: Shortness of breath, cough ^Y ^ERMD ORDER ^[id number] ^1929 ^Y COMPARISON: None FINDINGS: Lines and tubes: None The cardiac silhouette is normal allowing for portable technique and very low lung volumes. There is patchy airspace opacity at both lung bases. No pleural effusion or pneumothorax. Upper abdomen unremarkable. No acute bony abnormality. IMPRESSION: There are patchy airspace opacities at the lung bases. While this may reflect atelectasis accentuated by low lung volumes, this may represent multifocal pneumonia in the proper clinical setting. Signed by: Dr. Flako Conroy M.D. on 01/01/2020 8:13 PM
[2020-01-01 20:26] LABS: B-TYPE NATRIURETIC PEPTIDE2 25.9 pg/mL (0-100)
[2020-01-01 20:30] LABS: BACTERIA,URINE MODERATE /HPF
--- OUTSIDE RECORDS SUMMARY | 2020-01-01 20:57 | XMS REPORT | Continuity of Care Document ---
Author Author [facility] t Organization [facility] Address [address] [place] [address] Phone Unavailable Care Team Providers Care Cmm Inspector Name Role Phone NO, PCP PCP Unavailable ROQUE WALSH Attphys Unavailable RAJ XAVI Attphys Unavailable RAJ, XAVI Admphys Unavailable Payers Payer Name Policy Type Policy Number Effective Date Expiration Date Barbara recinos Miscellaneous Ppo [id number] 2017 00:00:00 [facility] Problems Condition Name Condition Details Condition Category Status Onset Date Resolution Date Last Treatment Date Treating Clinician Comments Source Gastrointestinal hemorrhage GI (gastrointestinal bleed) Problem Active [facility] Allergies, Adverse Reactions, Alerts This patient has no known allergies or adverse reactions. Medications Ordered Medication Name Filled Medication Name Start Date Stop Da te Current Medication? Ordering Clinician Indication Dosage Frequency Signature (SIG) Comments Components Source Pantoprazole Sodium (Protonix) 40 Mg Suspdr.pkt Pantop razole Sodium (Protonix) 40 Mg Suspdr.pkt 2018-02-26 00:00:00 2018-03-08 00:00:00 No Fernanda stubbs Php Wordpress Developer 40 Daily [facility] Sucralfate (Carafate) 1 Gm Tablet Sucralfate (Carafate) 1 Gm Tablet 2018-02-26 00:00:00 2018-03-08 00:00:00 No Fernanda Jimenez Php Wordpress Developer 1 Before Meals And At Bedtime [facility] Procedures Procedure Date / Time Performed Performing Clinician Sourc e EGD with biopsy 2018-02-23 00:00:00 FUAD ANGELA [facility] EGD (esophagogastroduodenoscopy) 2018-02-23 00:00:00 FUAD ANGELA [facility] US abdomen limited 2018-02-23 00:00:00 SOPHIA DIAL PA-C CH I [facility] Encounters Start Date/Time End Date/Time Encounter [facility] Encounter ID Source 2018-02-24 13:36:00 2018-02-26 13:39:00 Discharged Inpatient [address] [facility] [id number] [facility] Results Test Description Test Time Test Comments Results Result Comments Source CHEST SINGLE (PORTABLE) 2020-01-01 20:12:00 [facility] [address] [address] Patient Name: AN FRANK MR #: [id number] : 1985 Age/Sex: 34/M Req #: [id number] Adm Physician: Ordered by: ROQUE WALSH DO Report #: [id number] Location: ER Room/Bed: Procedure: [id number] DX/CHEST SINGLE (PORTABLE) Exam Date: 01/01/20 Exam Time: 1929 REPORT STATUS: Signed EXAM: CHEST SINGLE (PORTABLE) DATE: 01/01/2020 7:37 PM INDICATION: Shortness of breath, cough Y ERMD ORDER [id number] 1929 Y COMPARISON: None FINDINGS: Lines and tubes: None The cardiac silhouette is normal allowing for portable technique and very low lung volumes. There is patchy airspace opacity at both lung bases. No pleural effusion or pneumothorax. Upper abdomen unremarkable. No acute bony abnormality. IMPRESSION: There are patchy airspace opacities at the lung bases. While this may reflect atelectasis accentuated by low lung volumes, this may represent multifocal pneumonia in the proper clinical setting. Signed by: Dr. Flako Spaulding M.D. on 01/01/2020 8:13 PM Dictated By: FLAKO SPAULDING MD 12 Transcribed By: MARA on 01/01/202012 COPY TO: NICOROQUE Hemoglobin 2018-02-26 11:45:00 Test Item Hemoglobin (test code = 97079-9) 8.4 14.0-18.0 L [facility] Children[facility]ematocrit2018-08-06 11:45:00* Test Item Value Reference Range Interpretation Comments Hematocrit (test code = 4544-3) 23.9 38.2-49.6 [facility] Pjvvc3122-85-62 05:09:00* Test Item Value Reference Range Interpretation Comments Sodium Level (test code = 2951-2) 135 136-145 L [facility] ChildrenPotassium Tycjw5797-20-34 05:09:00* Test Item Value Reference Range Interpretation Comments Potassium Level (test code = 2823-3) 3.8 3.5-5.1 [facility] ChildrenChloride Bgejp1096-90-16 05:09:00* Test Item Value Reference Range Interpretation Comments Chloride Level (test code = 2075-0) 106 98-107 [facility] ChildrenCarbon Dioxide Iyhsq6936-24-84 05:09:00* Test Item Value Reference Range Interpretation Comments Carbon Dioxide Level (test code = 2028-9) 23 22-29 [facility] ChildrenAnion Ncr8111-81-11 05:09:00* Test Item Value Reference Range Interpretation Comments Anion Gap (test code = 58018-6) 9.8 8-16 [facility] ChildrenBlood Urea Kivdnknx9621-18-20 05:09:00* Test Item Value Reference Range Interpretation Comments Blood Urea Nitrogen (test code = 3094-0) 18 7-26 [facility] ChildrenCreatinine2018-08-04 05:09:00* Test Item Value Reference Range Interpretation Comments Creatinine (test code = 2160-0) 0.80 0.72-1.25 [facility] ChildrenBUN/Creatinine Suurk9040-90-12 05:09:00* Test Item Value Reference Range Interpretation Comments BUN/Creatinine Ratio (test code = 3097-3) 23 6-25 [facility] ChildrenEstimat Glomerular Filtration Rate 2018-02-24 05:09:00* Test Item Value Reference Range Interpretation Comments Estimat Glomerular Filtration Rate (test code = 11449-3) 60- >60 Ranges were taken from the National Kidney Disease Education Program and the [facility] Kidney Foundation literature.Reference ranges:60 or greater: Jcgjtr65-57 ( for 3 consecutive months): Chronic kidney disease 15 or less: Kidney failureTexas [facility]ite Hospital for ChildrenGlucose Unzlw0067-88-97 05:09:00* Test Item Value Reference Range Interpretation Comments Glucose Level (test code = MVX7354) 106 74-118 [facility] ChildrenCalcium Svvty2281-50-56 05:09:00* Test Item Value Reference Range Interpretation Comments Calcium Level (test code = 68831-4) 8.2 8.4-10.2 L [facility] ChildrenActivated Partial Thromboplast Time 2018-02-24 05:06:00* Test Item Value Reference Range Interpretation Comments Activated Partial Thromboplast Time (test code = 31556-1) 26.7 23.8-35.5 [facility] ChildrenWhite Blood Dyekq8235-51-74 05:01:00* Test Item Value Reference Range Interpretation Comments White Blood Count (test code = 6690-2) 6.56 4.8-10.8 [facility] ChildrenRed Blood Pdgis3299-02-44 05:01:00* Test Item Value Reference Range Interpretation Comments Red Blood Count (test code = 789-8) 2.84 4.3-5.7 L [facility] ChildrenMean Corpuscular Dcjtzz4361-58-45 05:01:00* Test Item Value Reference Range Interpretation Comments Mean Corpuscular Volume (test code = 787-2) 86.3 81-99 [facility] ChildrenMean Corpuscular Xwzaihsxhz7510-11-67 05:01:00* Test Item Value Reference Range Interpretation Comments Mean Corpuscular Hemoglobin (test code = 785-6) 30.3 28-32 [facility] ChildrenMean Corpuscular Hemoglobin Concent 2018-02-24 05:01:00* Test Item Value Reference Range Interpretation Comments Mean Corpuscular Hemoglobin Concent (test code = 786-4) 35.1 31-35 H [facility] ChildrenRed Cell Distribution Cqyrh0550-64-03 05:01:00* Test Item Value Reference Range Interpretation Comments Red Cell Distribution Width (test code = 45679-7) 13.1 11.7 -14.4 [facility] ChildrenPlatelet Hbwbl7820-03-89 05:01:00* Test Item Value Reference Range Interpretation Comments Platelet Count (test code = 777-3) 227 140-360 [facility] ChildrenNeutrophils (%) (Auto)2018-02-24 05:01:00 * Test Item Value Reference Range Interpretation Comments Neutrophils (%) (Auto) (test code = 82349-7) 68.3 38.7-80.0 [facility] ChildrenLymphocytes (%) (Auto)2018-02-24 05:01:00 * Test Item Value Reference Range Interpretation Comments Lymphocytes (%) (Auto) (test code = 736-9) 22.0 18.0-39.1 [facility] ChildrenMonocytes (%) (Auto)2018-02-24 05:01:00* Test Item Value Reference Range Interpretation Comments Monocytes (%) (Auto) (test code = 5905-5) 5.9 4.4-11.3 [facility] ChildrenEosinophils (%) (Auto)2018-02-24 05:01:00 * Test Item Value Reference Range Interpretation Comments Eosinophils (%) (Auto) (test code = 713-8) 2.1 0.0-6.0 [facility] ChildrenBasophils (%) (Auto)2018-02-24 05:01:00* Test Item Value Reference Range Interpretation Comments Basophils (%) (Auto) (test code = 706-2) 0.6 0.0-1.0 [facility] ChildrenIM GRANULOCYTES %2018-02-24 05:01:00* Test Item Value Reference Range Interpretation Comments IM GRANULOCYTES % (test code = IM GRANULOCYTES %) 1.1 0.0- 1.0 H [facility] ChildrenNeutrophils # (Auto)2018-02-24 05:01:00* Test Item Value Reference Range Interpretation Comments Neutrophils # (Auto) (test code = 751-8) 4.5 2.1-6.9 [facility] ChildrenLymphocytes # (Auto)2018-02-24 05:01:00* Test Item Value Reference Range Interpretation Comments Lymphocytes # (Auto) (test code = 08442-7) 1.4 1.0-3.2 [facility] ChildrenMonocytes # (Auto)2018-02-24 05:01:00* Test Item Value Reference Range Interpretation Comments Monocytes # (Auto) (test code = 742-7) 0.4 0.2-0.8 [facility] ChildrenEosinophils # (Auto)2018-02-24 05:01:00* Test Item Value Reference Range Interpretation Comments Eosinophils # (Auto) (test code = 711-2) 0.1 0.0-0.4 [facility] ChildrenBasophils # (Auto)2018-02-24 05:01:00* Test Item Value Reference Range Interpretation Comments Basophils # (Auto) (test code = 704-7) 0.0 0.0-0.1 [facility] ChildrenAbsolute Immature Granulocyte (auto 2018-02-24 05:01:00* Test Item Value Reference Range Interpretation Comments Absolute Immature Granulocyte (auto (nellie t code = Absolute Immature Granulocyte (auto) 0.07 0-0.1 [facility] ChildrenUS ABDOMEN ZBYGUSG5390-68-78 18:45:[address] [address] Patient Name: AN FRANK MR #: [id number] : 1985 Age/Sex: 32/M Req #: [id number] Adm Physicia n: XAVI ANTHONY MD Ordered by: SOPHIA DIAL PA-C Report #: [id number] L ocation: [facility] Room/Bed: [facility] 176-1 Procedure: US/US ABDOMEN LIMITED Exam Date: 02/23/18 [...] Comments Vitamin B12 Level (test code = 10262-1) 361 213-816 [facility] ChildrenFerritin2018-08-03 09:29:00* Test Item Value Reference Range Interpretation Comments Ferritin (test code = 2276-4) 8.21 21.81-274.66 L [facility] ChildrenThyroid Stimulating Hormone (TSH) 2018-02-23 09:29:00* Test Item Value Reference Range Interpretation Comments Thyroid Stimulating Hormone (TSH) (test code = 76470-3) 0.941 0.350-4.940 [facility] ChildrenIron Kiyjz8909-22-75 09:07:00* Test Item Value Reference Range Interpretation Comments Iron Level (test code = 2498-4) 28 65-175 L [facility] ChildrenTotal Iron Binding Aidtmqsj5993-17-54 09:07:00* Test Item Value Reference Range Interpretation Comments Total Iron Binding Capacity (test code = 2500-7) 441 261-4 78 [facility] ChildrenPercent Iron Cqapiipjak5654-44-17 09:07:00* Test Item Value Reference Range Interpretation Comments Percent Iron Saturation (test code = 2502-3) 6 15-50 L [facility] ChildrenTransferrin2018-08-03 09:07:00* Test Item Value Reference Range Interpretation Comments Transferrin (test code = 3034-6) 315 174-364 [facility] ChildrenTriglycerides Hiemy5104-85-41 09:07:00* Test Item Value Reference Range Interpretation Comments Triglycerides Level (test code = 2571-8) 83 0-149 [facility] ChildrenCholesterol Iqtcp8715-73-30 09:07:00* Test Item Value Reference Range Interpretation Comments Cholesterol Level (test code = 2093-3) 99 0-199 Less than 200 mg/dL Low Qvch199 - 239 mg/dL Borderline Iuzv849 m g/dl and greater High Risk [facility] ChildrenLDL Wvqnweqcviu1181-54-57 09:07:00* Test Item Value Reference Range Interpretation Comments LDL Cholesterol (test code = 2089-1) 53 60-130 L [facility] ChildrenHDL Wluuprrquzr6354-61-16 09:07:00* Test Item Value Reference Range Interpretation Comments HDL Cholesterol (test code = 2085-9) 29 40-60 L [facility] ChildrenCholesterol/HDL Nofhi7830-20-88 09:07:00 * Test Item Value Reference Range Interpretation Comments Cholesterol/HDL Ratio (test code = 9830-1) 3.4 3.9-4.7 L [facility] ChildrenHemoglobin A1c Nmbpjin1750-91-13 09:06:00 * Test Item Value Reference Range Interpretation Comments Hemoglobin A1c Percent (test code = Hemoglobin A1c Percent) 4.9 4.0-7.0 [facility] ChildrenProthrombin Tscs0129-39-90 08:41:00* Test Item Value Reference Range Interpretation Comments Prothrombin Time (test code = 5902-2) 13.4 11.9-14.5 [facility] ChildrenProthromb Time International Ratio 2018-02-23 08:41:00* Test Item Value Reference Range Interpretation Comments Prothromb Time International Ratio (test code = 6301-6) 1.10 Oral Anticoagulant Therapy INR Values:1. Low Intensity Therapy 1.5 - 2.02 . Moderate Intensity Therapy 2.0 - 3.03. High Intensity Therapy(1) 2.5 - 3. 54. High Intensity Therapy(2) 3.0 - 4.05. Panic Value INR > 5.0 [facility] ChildrenCreatine Kinase [id number] 08:37:00* Test Item Value Reference Range Interpretation Comments Creatine Kinase MB (test code = 01450-8) 0.40 0-5.0 [facility] ChildrenTroponin K7389-74-30 08:37:00* Test Item Value Reference Range Interpretation Comments Troponin I (test code = YVB5232) 0.017 0-0.300 [facility] ChildrenTotal Skbetqixj1663-46-24 08:29:00* Test Item Value Reference Range Interpretation Comments Total Bilirubin (test code = 1975-2) 0.4 0.2-1.2 [facility] ChildrenAspartate Amino Transf (AST/SGOT) 2018-02-23 08:29:00* Test Item Value Reference Range Interpretation Comments Aspartate Amino Transf (AST/SGOT) (test code = Aspartate Amino Transf (AST/SGOT)) 14 5-34 [facility] ChildrenAlanine Aminotransferase (ALT/SGPT) 2018-02-23 08:29:00* Test Item Value Reference Range Interpretation Comments Alanine Aminotransferase (ALT/SGPT) (test code = 1742-6) 19 0-55 [facility] ChildrenTotal Uqkdchn5122-74-54 08:29:00* Test Item Value Reference Range Interpretation Comments Total Protein (test code = 2885-2) 6.3 6.5-8.1 L [facility] ChildrenAlbumin2018-08-03 08:29:00* Test Item Value Reference Range Interpretation Comments Albumin (test code = 1751-7) 3.7 3.5-5.0 [facility] ChildrenGlobulin2018-08-03 08:29:00* Test Item Value Reference Range Interpretation Comments Globulin (test code = 41942-7) 2.6 2.3-3.5 [facility] ChildrenAlbumin/Globulin Ovhiz1534-14-72 08:29:00 * Test Item Value Reference Range Interpretation Comments Albumin/Globulin Ratio (test code = 1759-0) 1.4 0.8-2.0 [facility] ChildrenAlkaline Ivnkyljqcgm1468-22-12 08:29:00* Test Item Value Reference Range Interpretation Comments Alkaline Phosphatase (test code = 6768-6) 47 40-150 [facility] ChildrenCreatine Veatvk7874-91-37 08:29:00* Test Item Value Reference Range Interpretation Comments Creatine Kinase (test code = 2157-6) 33 30-200 [facility]
[2020-01-01] MEDS ORDERED: ACETAMINOPHEN 325 MG TAB PO PRN (22:15)
[2020-01-01 22:30] VITALS: BP 110/69
--- NOTE | 2020-01-01 22:34 | NUR ---
Patient arrived from ER in stable condition, no s/s of distress at this time. Pulse ox 96% on 2L O2 NC. Patient oriented to room, bed locked and in lowest position, side rails up x3, call light placed within reach. Patient instructed to call for assistance if needed, verbalized understanding. All safety measures in place. Will continue to monitor.
[2020-01-01 23:11] VITALS: BP 110/69
[2020-01-02] VITALS (7 sets, daily range): BP systolic 108–127; BP diastolic 66–74
[2020-01-02 05:47] LABS: BASOPHILS % 0.3 % (0.0-1.0); EOSINOPHILS % 0.3 % (0.0-6.0); HEMATOCRIT 49.6 % (38.2-49.6); HEMOGLOBIN 16.6 g/dL (14.0-18.0); LYMPHOCYTES % 11.3 % (18.0-39.1); MEAN CORPUSCULAR HGB CONC 33.5 g/dL (31-35); MEAN CORPUSCULAR VOLUME 86.7 fL (81-99); MONOCYTES # (AUTO) 0.9 (0.2-0.8); MONOCYTES % 9.6 % (4.4-11.3); NEUTROPHILS # (AUTO) 7.1 (2.1-6.9); PLATELET COUNT 204 x10e3/uL (140-360); RED BLOOD COUNT 5.72 x10e6/uL (4.3-5.7); RED CELL DISTRIBUTION WIDTH 12.2 % (11.7-14.4)
--- NOTE | 2020-01-02 05:50 | NUR ---
Dr. Rubio here to see patient. Informed him that patient is requesting medication for nonproductive cough. Received orders for Tessalon Perles 100 mg Q8H PRN and Robitussin Q4H PRN.
[2020-01-02 06:00] LABS: ALANINE AMINOTRANSFERASE 26 IU/L (0-55); ALBUMIN 3.7 g/dL (3.5-5.0); ALKALINE PHOSPHATASE 60 IU/L (40-150); ANION GAP 17.7 mmol/L (8-16); BLOOD UREA NITROGEN 12 mg/dL (7-26); BUN/CREATININE RATIO 15 (6-25); CALCIUM 8.9 mg/dL (8.4-10.2); CARBON DIOXIDE 18 mmol/L (22-29); CHLORIDE 107 mmol/L (98-107); CREATININE, SERUM 0.81 mg/dL (0.72-1.25); EST GLOMERULAR FILTRATION RATE > 60 ML/MIN (60-); GLUCOSE 104 mg/dL (74-118); POTASSIUM 3.7 mmol/L (3.5-5.1); SODIUM 139 mmol/L (136-145)
[2020-01-02] MEDS ORDERED: BENZONATATE 100 MG CAP PO PRN (06:00)
[2020-01-02] MEDS: GUAIFENESIN/CODEINE 10 ML CUP PO PRN (06:07)
--- NOTE | 2020-01-02 06:33 | NUR ---
Called routine consult to Dr. Scott's office and spoke with Charles (answering service).
[2020-01-02] MEDS ORDERED: SODIUM CHLORIDE 0.9% 1000ML 1,000 ML IV SCH (09:00)
--- NOTE | 2020-01-02 09:25 | NUR ---
Telephone visit made by instructor hairspring. Client Care Coordinator provided empathic listening and prayer. Provided information on how to reach instructor hairspring, if needed. Will follow as able. [facility] O: [phone]
--- NOTE | 2020-01-02 09:42 | Consultation ---
DATE OF CONSULTATION: Pulmonary Consultation The patient of Dr. Leonides Rubio. HISTORY OF PRESENT ILLNESS: Unfortunate 34-year-old gentleman, with history of COVID-19 exposure to brother, who was ill. He has been sick for approximately one week with cough, sputum, myalgias, short of breath and was admitted to the hospital because of hypoxia and apparent pneumonia. He was previously healthy. MEDICATIONS: On no medications. ALLERGIES: NO KNOWN ALLERGIES. PAST SURGICAL HISTORY: No surgical history. SOCIAL HISTORY: Born in [place], [place]. 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 PHYSICAL EXAMINATION: GENERAL: This is a burly white male, in no acute distress, but anxious, difficult for him to move because of his myalgias. Cough has been suppressed with codeine. VITAL SIGNS: Temperature 98.1, pulse 71, respirations 18, blood pressure 129/70. HEAD: Normocephalic, atraumatic. LUNGS: Diminished breath sounds. HEART: Regular rhythm. ABDOMEN: Nontender. EXTREMITIES: Nonedematous. IMPRESSION: COVID-19 with pneumonia at the bases, comfortable on nasal oxygen. PLAN: To continue support. Consideration for remdesivir if available, defer antibiotics to Infectious Disease Service, if cultures sputum. Monitor carefully with continuous pulse ox. Thank you for this kind referral. MD BAYLEE Daley/NOHEMI /[id number]
[2020-01-02] MEDS ORDERED: ENOXAPARIN SOD INJ 40 MG/0.4 ML SYR SC SCH (17:00)
[2020-01-02] MEDS: AZITHROMYCIN 500MG/NS 250 ML 250 ML IV SCH (17:25)
[2020-01-02] MEDS ORDERED: NS 0.9% IV ONE (18:00)
[2020-01-02] MEDS ORDERED: REMDESIVIR IV ONE (18:00)
[2020-01-02] MEDS: ENOXAPARIN 30 MG/0.3 ML SYR SC SCH (18:08)
[2020-01-02] MEDS: CEFTRIAXONE SOD 2 GM/NS 100 ML 100 ML IV SCH (18:58)
--- NOTE | 2020-01-02 19:00 | NUR ---
Resumed care of patient. Patient awake and resting in bed, no s/s of distress at this time. Bed locked and in lowest position, side rails up x3, call light placed within reach. Patient instructed to call for assistance if needed, verbalized understanding. All safety measures in place. Will continue to monitor.
--- NOTE | 2020-01-02 20:45 | Consultation ---
DATE OF CONSULTATION: 01/02/2020 HISTORY OF PRESENT ILLNESS: Mr. Reyna is here because he has been sick for 5 days. He was around his brother, who is actually a patient of mine with COVID-19, recently was discharged. He is coming now with the same symptoms of fatigue, not feeling well, shortness of breath, cough. He is hypoxemic, he is on 4 L, feeling really bad. PAST MEDICAL HISTORY: Denies. PAST SURGICAL HISTORY: Denies. ALLERGIES: NKA. SOCIAL HISTORY: There is no smoking, drug abuse or alcohol abuse currently. FAMILY HISTORY: Otherwise noncontributory except for mentioned above. White count is 9.17, hemoglobin 16, sodium 139, potassium 3.7. PHYSICAL EXAMINATION: GENERAL: He is currently alert, oriented. VITAL SIGNS: Stable. T-max 102.5 on admission. HEENT: He is not icteric. NECK: Supple. CHEST: Crackles bilateral. COR: S1 and S2. No murmur. ABDOMEN: Soft. IMPRESSION: COVID-19 present on admission, concerned about superimposed pneumonia. We will put the patient on Rocephin 2 g daily, azithromycin 500 mg daily. Also start him on Lovenox 30 subcu q.12 hours, oxygen as needed. Discussed with the patient at length. He wants drug that is only authorized by the FDA for emergency use and he was given the medication fact, provided the patient he made a decision to take it. The patient understands that he may decide to stop taking it. If patient agreed to take it, we will start the process. MD HERBIE Hinkle/NOHEMI /[id number]
--- NOTE | 2020-01-02 22:58 | NUR ---
O2 decreased from 3L to 2L. Pulse ox 96%. Will continue to monitor.
[2020-01-03] VITALS (8 sets, daily range): BP systolic 109–117; BP diastolic 68–83
[2020-01-03 04:49] LABS: BASOPHILS % 0.7 % (0.0-1.0); EOSINOPHILS # (AUTO) 0.2 (0.0-0.4); EOSINOPHILS % 3.2 % (0.0-6.0); HEMATOCRIT 50.1 % (38.2-49.6); LYMPHOCYTES # (AUTO) 1.2 (1.0-3.2); MEAN CORPUSCULAR HEMOGLOBIN 28.8 pg (28-32); MEAN CORPUSCULAR HGB CONC 33.9 g/dL (31-35); MEAN CORPUSCULAR VOLUME 84.8 fL (81-99); MONOCYTES # (AUTO) 0.8 (0.2-0.8); NEUTROPHILS # (AUTO) 3.7 (2.1-6.9); NEUTROPHILS % 62.2 % (38.7-80.0); PLATELET COUNT 234 x10e3/uL (140-360); RED BLOOD COUNT 5.91 x10e6/uL (4.3-5.7); RED CELL DISTRIBUTION WIDTH 12.1 % (11.7-14.4)
[2020-01-03] MEDS: ENOXAPARIN 30 MG/0.3 ML SYR SC SCH ×2 (05:02→18:11)
[2020-01-03 05:08] LABS: ANION GAP 16.6 mmol/L (8-16); BLOOD UREA NITROGEN 9 mg/dL (7-26); BUN/CREATININE RATIO 11 (6-25); CALCIUM 8.6 mg/dL (8.4-10.2); CARBON DIOXIDE 21 mmol/L (22-29); CHLORIDE 106 mmol/L (98-107); EST GLOMERULAR FILTRATION RATE > 60 ML/MIN (60-); GLUCOSE 90 mg/dL (74-118); POTASSIUM 3.6 mmol/L (3.5-5.1); SODIUM 140 mmol/L (136-145)
--- NOTE | 2020-01-03 07:37 | Diagnostic Imaging Report ---
EXAMINATION: CHEST SINGLE (PORTABLE) INDICATION: ^covid ^[id number] ^0600 COMPARISON: 01/01/2020 FINDINGS: AP view TUBES and LINES: None. LUNGS: Limited by body habitus and low lung volumes. Bilateral airspace opacities. PLEURA: No significant pleural effusion or pneumothorax. HEART AND MEDIASTINUM: The cardiomediastinal silhouette is enlarged, accentuated by low lung volumes and technique. BONES AND SOFT TISSUES: No acute osseous lesion. Soft tissues are unremarkable. UPPER ABDOMEN: No free air under the diaphragm. IMPRESSION: Limited as above. Bilateral airspace opacities, left greater than right, concerning for multifocal pneumonia. Signed by: Dr. Andrzej Sood MD on 01/03/2020 7:33 AM
[2020-01-03] MEDS: REMDESIVIR 100 MG IN 0.9% NS 100 ML IV SCH (15:38)
[2020-01-03] MEDS: CEFTRIAXONE SOD 2 GM/NS 100 ML 100 ML IV SCH (18:11)
[2020-01-03] MEDS: AZITHROMYCIN 500MG/NS 250 ML 250 ML IV SCH (19:19)
--- NOTE | 2020-01-03 19:20 | Consultation ---
DATE OF CONSULTATION: HISTORY OF PRESENT ILLNESS: Mr. Reyna is feeling better. His oxygen dropped to 2 L. He is feeling better. REVIEW OF SYSTEMS: Otherwise unremarkable. LABORATORY DATA: Reviewed. PHYSICAL EXAMINATION: GENERAL: He is currently alert, oriented, does not seem acute distress. VITALS: Stable, currently afebrile. HEENT: Not icteric. NECK: Supple. CHEST: Clear. HEART: S1 and S2. ABDOMEN: Soft. IMPRESSION: COVID-19. The patient is improving. He is on Remdesivir. Continue with plan of care as ordered. He is on antibiotic and Lovenox. Oxygen as needed. MD HERBIE Hinkle/NOHEMI /[id number]
--- NOTE | 2020-01-03 20:15 | NUR ---
Patient is alert and oriented. Ambulates independently. Refused bed alarm.
[2020-01-03] MEDS: GUAIFENESIN/CODEINE 10 ML CUP PO PRN (21:21)
[2020-01-04] VITALS (7 sets, daily range): BP systolic 103–128; BP diastolic 68–73
[2020-01-04] MEDS: ENOXAPARIN 30 MG/0.3 ML SYR SC SCH ×2 (06:00→18:16)
[2020-01-04 06:20] LABS: BASOPHILS % 0.7 % (0.0-1.0); EOSINOPHILS # (AUTO) 0.3 (0.0-0.4); EOSINOPHILS % 4.3 % (0.0-6.0); HEMATOCRIT 47.9 % (38.2-49.6); HEMOGLOBIN 16.7 g/dL (14.0-18.0); LYMPHOCYTES # (AUTO) 1.1 (1.0-3.2); LYMPHOCYTES % 18.9 % (18.0-39.1); MEAN CORPUSCULAR HEMOGLOBIN 29.1 pg (28-32); MEAN CORPUSCULAR HGB CONC 34.9 g/dL (31-35); MEAN CORPUSCULAR VOLUME 83.4 fL (81-99); MONOCYTES # (AUTO) 0.6 (0.2-0.8); MONOCYTES % 10.1 % (4.4-11.3); NEUTROPHILS # (AUTO) 3.7 (2.1-6.9); NEUTROPHILS % 63.9 % (38.7-80.0); PLATELET COUNT 269 x10e3/uL (140-360); RED BLOOD COUNT 5.74 x10e6/uL (4.3-5.7); RED CELL DISTRIBUTION WIDTH 11.9 % (11.7-14.4)
[2020-01-04 06:39] LABS: ALANINE AMINOTRANSFERASE 25 IU/L (0-55); ALBUMIN 3.3 g/dL (3.5-5.0); ALBUMIN/GLOBULIN RATIO 0.9 (0.8-2.0); ALKALINE PHOSPHATASE 55 IU/L (40-150); ANION GAP 15.7 mmol/L (8-16); BLOOD UREA NITROGEN 13 mg/dL (7-26); BUN/CREATININE RATIO 16 (6-25); CALCIUM 9.2 mg/dL (8.4-10.2); CARBON DIOXIDE 22 mmol/L (22-29); CHLORIDE 107 mmol/L (98-107); CREATININE, SERUM 0.81 mg/dL (0.72-1.25); EST GLOMERULAR FILTRATION RATE > 60 ML/MIN (60-); GLUCOSE 87 mg/dL (74-118); POTASSIUM 3.7 mmol/L (3.5-5.1); SODIUM 141 mmol/L (136-145)
--- NOTE | 2020-01-04 07:33 | NUR ---
ASSUMED CARE. PT RESTING IN BED. AAOX3. ACYANOTIC. NO DISTRESS NOTED. CALL LIGHT IN REACH. SIDE RAILS UP X2. BED LOW AND LOCKED.
[2020-01-04] MEDS: REMDESIVIR 100 MG IN 0.9% NS 100 ML IV SCH (14:51)
[2020-01-04] MEDS: CEFTRIAXONE SOD 2 GM/NS 100 ML 100 ML IV SCH (17:38)
[2020-01-04] MEDS: AZITHROMYCIN 500MG/NS 250 ML 250 ML IV SCH (18:36)
--- NOTE | 2020-01-04 19:57 | NUR ---
Patient is alert and oriented. No complain at this time. Side rails up. Bed alarm refused. Call light within reached and encouraged to use.
[2020-01-05] VITALS: BP 119/58
[2020-01-05 04:00] VITALS: BP 111/74
[2020-01-05] MEDS: ENOXAPARIN 30 MG/0.3 ML SYR SC SCH (06:19)
[2020-01-05 08:00] VITALS: BP 93/63
[2020-01-05 08:35] VITALS: BP 93/63
[2020-01-05 12:24] VITALS: BP 106/72
--- NOTE | 2020-01-05 13:52 | NUR ---
doing better can dc home seen and examined
== END 2020-01-05 14:14 | disposition home or self-care (01) | DRG 177 ==
LOC: ER 18:49 → ERHOLD 20:46 → IMCU 22:49
PROVIDERS: ADMIT Internal Medicine; ATTEND Internal Medicine
DX: U07.1 COVID-19 (principal); J12.9 Viral pneumonia, unspecified; A41.9 Sepsis, unspecified organism; J96.01 Acute respiratory failure with hypoxia
CPT/HCPCS: 36415; 71045; 80048; 80053; 81001; 82550; 82553; 82948; 83605; 83880; 84484; 85025; 87040; 87070; 87086; 87205; 87635; 93005; 99284; J0456; J0696; J1650; J2543; J7030

== ENCOUNTER 2022-03-19 08:43 | Emergency (ER) | payer OTHER ==
[~2022-03-19] VITALS: Ht 170.2 cm; Wt 106.6 kg
[2022-03-19] MEDS ORDERED: KETOROLAC TROMETHAMINE 30 MG/ML VIAL IM STA (08:48)
[2022-03-19] MEDS ORDERED: NAPROXEN250 MG PO (09:04)
== END 2022-03-19 09:15 | disposition home or self-care (01) ==
LOC: ER 08:47
DX: M54.50 Low back pain, unspecified (principal); V43.54XA Car driver injured in collision with van in traffic accident, initial encounter; Y92.488 Other paved roadways as the place of occurrence of the external cause
CPT/HCPCS: 99282; J1885

== ENCOUNTER 2022-11-25 03:34 | Emergency (ER) | payer OTHER ==
[~2022-11-25] VITALS: Ht 170.2 cm; Wt 106.6 kg
[~2022-11-25 03:34] MED LIST changes: +NAPROXEN250 MG PO
[2022-11-25] MEDS ORDERED: ACETAMINOPHEN 1000 MG/100 ML IV STA (04:08)
[2022-11-25 04:15] LABS: BASOPHILS # (AUTO) 0.1 (0.0-0.1); BASOPHILS % 0.5 % (0.0-1.0); EOSINOPHILS # (AUTO) 0.2 (0.0-0.4); EOSINOPHILS % 1.3 % (0.0-6.0); HEMATOCRIT 54.6 % (38.2-49.6); HEMOGLOBIN 19.3 g/dL (14.0-18.0); LYMPHOCYTES # (AUTO) 0.5 (1.0-3.2); LYMPHOCYTES % 3.9 % (18.0-39.1); MEAN CORPUSCULAR HEMOGLOBIN 30.4 pg (28-32); MEAN CORPUSCULAR HGB CONC 35.3 g/dL (31-35); MONOCYTES # (AUTO) 0.8 (0.2-0.8); MONOCYTES % 6.9 % (4.4-11.3); NEUTROPHILS # (AUTO) 10.5 (2.1-6.9); NEUTROPHILS % 86.7 % (38.7-80.0); PLATELET COUNT 219 x10e3/uL (140-360); RED BLOOD COUNT 6.35 x10e6/uL (4.3-5.7); RED CELL DISTRIBUTION WIDTH 13.5 % (11.7-14.4)
[2022-11-25] MEDS ORDERED: ONDANSETRON HCL INJ 2MG/ML 2ML 2 MG/ML VIAL IV STA (04:26)
[2022-11-25 04:27] LABS: INR 0.94; PARTIAL THROMBOPLASTIN TIME 29.2 seconds (23.8-35.5); PROTHROMBIN TIME 13.1 seconds (11.9-14.5)
[2022-11-25] MEDS ORDERED: ONDANSETRON HCL INJ 2MG/ML 2ML 2 MG/ML VIAL ONE (04:37)
[2022-11-25] MEDS ORDERED: SODIUM CHLORIDE 0.9% 1000ML 1,000 ML ONE (04:37)
[2022-11-25] MEDS ORDERED: ACETAMINOPHEN 1000 MG/100 ML 100 ML IV ONE (04:37)
[2022-11-25] MEDS: SODIUM CHLORIDE 0.9% 1000ML 1,000 ML IV SCH ×2 (04:39→05:47)
[2022-11-25 04:40] LABS: ALBUMIN 4.6 g/dL (3.5-5.0); ALBUMIN/GLOBULIN RATIO 1.2 (0.8-2.0); ANION GAP 16.1 mmol/L (8-16); CALCIUM 9.5 mg/dL (8.4-10.2); CREATININE, SERUM 0.98 mg/dL (0.72-1.25); POTASSIUM 4.1 mmol/L (3.5-5.1)
[2022-11-25 04:42] LABS: B-TYPE NATRIURETIC PEPTIDE2 < 10.0 pg/mL (0-100)
[2022-11-25 04:45] LABS: CREATINE KINASE MB 0.9 ng/mL (0-5.0)
[2022-11-25] MEDS ORDERED: Morphine 4mg INJECTION 4 MG/ML INJ IV ONE (04:45)
[2022-11-25] MEDS ORDERED: IOPAMIDOL 370 MG/ML 100 ML INFUS..BTL INJ ONE (04:56)
[2022-11-25 04:57] LABS: CLARITY,URINE CLEAR (CLEAR); COLOR,URINE AMBER (YELLOW); KETONES,URINE TRACE (NEGATIVE); LEUKOCYTE ESTERASE ,URINE NEGATIVE (NEGATIVE); NITRITE,URINE NEGATIVE (NEGATIVE); PROTEIN,URINE DIPSTICK 1+ (NEGATIVE); URINE UROBILINOGEN 0.2 mg/dL (0.2 - 1)
[2022-11-25 05:00] LABS: AMORPHOUS SEDIMENT,URINE FEW (FEW); AMPHETAMINES SCREEN,URINE NEGATIVE (NEGATIVE); BACTERIA,URINE RARE /HPF; BENZODIAZEPINES SCREEN,URINE NEGATIVE (NEGATIVE); EPITHELIAL CELLS,URINE RARE /LPF; MUCUS,URINE FEW (RARE); PHENCYCLIDINE SCREEN,URINE NEGATIVE (NEGATIVE); WBC,URINE (MAN) 0-5 /HPF (0-5)
[2022-11-25] MEDS ORDERED: SODIUM CHLORIDE 0.9% 1000ML 1,000 ML IV SCH (05:45)
[2022-11-25] MEDS ORDERED: DICYCLOMINE HCL20 MG PO (05:56)
[2022-11-25] MEDS ORDERED: ONDANSETRON ODT4 MG PO (05:56)
[2022-11-25 06:14] VITALS: BP 122/77
== END 2022-11-25 06:24 | disposition home or self-care (01) ==
LOC: ER 03:42
DX: R50.9 Fever, unspecified (principal); R10.13 Epigastric pain; R11.2 Nausea with vomiting, unspecified; E86.0 Dehydration; R19.7 Diarrhea, unspecified; Z20.822 Contact with and (suspected) exposure to COVID-19
CPT/HCPCS: 36415; 71045; 74177; 80053; 80307; 81001; 82550; 82553; 83605; 83690; 83880; 84484; 85025; 85610; 85730; 87040; 87086; 93005; 99284; J0131; J2270; J2405; J2543; J7030; Q9967; U0002